=== PATIENT | male | born 1950 | race Caucasian/White ===

== ENCOUNTER 2019-03-17 17:15 | Inpatient (IN) | payer OTHER ==
[~2019-03-17] VITALS: Ht 172.7 cm; Wt 93.6 kg
[~2019-03-17 17:15] MED LIST: ASPIRIN81 M1 PO; HIGH BP MED
[2019-03-17 17:19] VITALS: BP 150/77
[2019-03-17 17:56] LABS: BILIRUBIN NEGATIVE (NEGATIVE); BLOOD 3+ (NEGATIVE); CLARITY CLOUDY (CLEAR); COLOR YELLOW (YELLOW); GLUCOSE 1+ (NEGATIVE); KETONE NEGATIVE (NEGATIVE); LEUKO ESTERASE NEGATIVE (NEGATIVE); NITRITE POSITIVE (NEGATIVE); PH 5.5 (5.0-9.0); SPECIFIC GRAVITY >= 1.030 (1.005-1.030)
[2019-03-17 18:12] LABS: WBC 31-40 wbc/hpf (0-5)
[2019-03-17 18:13] LABS: BACTERIA 2+
[2019-03-17 18:13] LABS: HEMATOCRIT 46.5 % (42.0-52.0); HEMOGLOBIN 16.3 g/dl (14.0-18.0); MEAN CELL VOLUME 92.1 fl (80.0-94.0); MEAN CORPUSCULAR HGB 32.3 pg (27.0-31.0); MEAN CORPUSCULAR HGB CONC 35.1 g/dl (33.0-37.0); MEAN PLATELET VOLUME 11.5 fl (9.6-12.3); PLATELET COUNT AUTOMATED 163 10*3/uL (130-400); RED BLOOD COUNT 5.05 10*6/uL (4.50-5.90); RED CELL DISTRI WIDTH 12.9 % (0-14.5); WHITE BLOOD COUNT 19.1 10*3/uL (4.8-10.8)
[2019-03-17 18:29] LABS: ALBUMIN 3.2 gm/dl (3.1-4.5); ALKALINE PHOSPHATASE 69 U/L (45-117); BUN 28 mg/dl (7-24); CHLORIDE 100 mmol/L (98-107); CREATININE 1.29 mg/dL (0.70-1.30); POTASSIUM 3.4 mmol/L (3.5-5.1); SGOT/AST 17 IU/L (3-35); SGPT/ALT 23 U/L (12-78); SODIUM 134 mmol/L (136-145); TOTAL PROTEIN 7.6 gm/dL (6.4-8.2)
[2019-03-17 18:32] LABS: TOTAL CELLS COUNTED 100 #CELLS
[2019-03-17 18:33] LABS: PLATELET SUFFICIENCY NORMAL (NORMAL)
[2019-03-17 20:15] VITALS: BP 144/83
--- NOTE | 2019-03-17 20:15 | NUR ---
The assessment has been completed. ANN NEWSOMEime: 2014 A 68 year old MALKE admitted to under services of HERB SANTAMARIA DO. Pt. arrived via ambulatory from ER. Chief complaint: FEVER,CHILLS,DYSURIA,BODY ACHES, HEADACHE SINCE Monday03/13/19. MAYURI NEWSOME
[2019-03-17] MEDS ORDERED: VITAMIN D250 MCG PO (20:45)
[2019-03-17] MEDS ORDERED: NAPROXEN SODIU500 M1 PO (20:46)
[2019-03-17] MEDS ORDERED: TENORMIN50 MG PO (20:46)
[2019-03-17] MEDS ORDERED: FISH OIL + D31 EACH PO (20:47)
[2019-03-17] MEDS ORDERED: LISINOPRIL40 MG PO (20:48)
[2019-03-17] MEDS ORDERED: GLUCOTROL XL10 MG PO (20:48)
[2019-03-17] MEDS ORDERED: AMLODIPINE BESYL5 MG PO (20:49)
[2019-03-17] MEDS ORDERED: ALOGLIPTIN25 MG PO (20:49)
--- NOTE | 2019-03-17 20:51 | NUR ---
NOTIFIED DR MCGUIRE OF PTS ARRIVAL TO FLOOR. MED REC UP TO DATE. ALSO INFORMED HIM THAT PT WAS IN BIGEMENY WITH NO SYMPTOMS. STATED HE WOULD PUT ORDERS IN .
--- NOTE | 2019-03-17 21:11 | NUR ---
SPOKE WITH DR MCGUIRE. ORDERS RECIEVED AND REPEATED BACK.
--- NOTE | 2019-03-17 22:31 | NUR ---
PT REQUESTING SOMETHING TO HELP HIM SLEEP TONIGHT. MEDICATED PER ORDER. WILL MONITOR FOR EFFECTIVENESS. VOICES NO OTHER CONCERNS AT THIS TIME. RESTING IN BED. CALL LIGHT WITHIN REACH. RESPS EASY AND NON LABORED.
[2019-03-18] VITALS: BP 131/60
--- NOTE | 2019-03-18 00:49 | NUR ---
24 HR chart check completed.
--- NOTE | 2019-03-18 03:04 | NUR ---
Patient sleeping. Respirations relaxed and easy. Siderails up . [place] on. No signs or symptoms of distress noted. Call light within reach. HISSOM,MAYURI
[2019-03-18 07:21] VITALS: BP 140/80
--- NOTE | 2019-03-18 07:46 | NUR ---
PT IS LAYING IN BED ORDERING BREAKFAST, ASSESSMENT COMPLETED, NO COMPLAINTS AT THIS TIME. DIMA GUILLENU.RCC
--- NOTE | 2019-03-18 07:55 | NUR ---
PT COMPLAINED OF HEADACHE, ACETAMINOPHEN GIVEN, PT TOLERATED WELL, LAYING IN BED WATCHING TELEVISION. DIMA LBAS TREV.RCC
--- NOTE | 2019-03-18 10:04 | NUR ---
PT COOPERATIVE, SITTING IN BED WATCHING TELEVISION, NO COMPLAINTS AT THIS TIME. DIMA BLAS TREV.RCC
--- NOTE | 2019-03-18 10:21 | NUR ---
ANIMAL TREATMENT INVESTIGATOR DC'D ORDERED PER
[2019-03-18 12:32] VITALS: BP 140/80
--- NOTE | 2019-03-18 12:40 | NUR ---
PT LAYING IN BED PEACEFULLY, VISITING WITH FAMILY, ORDERING LUNCH, NO COMPLAINTS AT THIS TIME. DIMA KARIMI.RCC
--- NOTE | 2019-03-18 13:30 | NUR ---
PT SITTING IN BED COMFORTABLY, VISITNG WITH FAMILY, ASSESSMENT COMPLETED, NO COMPLAINTS AT THIS TIME. DIMA GUILLENU.[facility]
--- NOTE | 2019-03-18 13:41 | NUR ---
REPORT GIVEN TO BOBBY KARIMI.RCC
--- NOTE | 2019-03-18 14:13 | NUR ---
DR REY MADE AWARE OF POSITIVE BLOOD CULTURES OF GNB.
--- NOTE | 2019-03-18 14:31 | NUR ---
Sport Intern in to talk to patient. Patient states lives at HOME with DAUGHTER. There are FEW steps in the home. Physician: AMAURI [facility]: [facility] Home health services: NONE Patient's level of ADLs: INDEPENDENT Patient has working utilities: YES DME: NONE Follow-up physician's appointment after d/c: WILL BE MADE BY HOSPITALIST NURSE DIRECTOR ON DISCHARGE Does patient want to access PORTAL?: NO Discharge plan PT LIVES WITH DAUGHTER AND IS INDEPENDENT IN HIS CARE. DENIES HE WILL HAVE NEEDS ON DISCHARGE. WILL CONTINUE TO FOLLOW. STATES HE [facility] HOME. BAKARI DUARTE
--- NOTE | 2019-03-18 15:51 | NUR ---
MEDICATED WITH TYLENOL PER PRN ORDER FOR TEMP OF 100.2. WILL MONITOR.
[2019-03-18 16:00] VITALS: BP 150/66
--- NOTE | 2019-03-18 17:33 | NUR ---
RECHECKED PT'S TEMP. 99.6
--- NOTE | 2019-03-18 19:30 | NUR ---
PT RESTING IN BED. VOICES NO CONCERNS/COMPLAINTS AT THIS TIME. NO S/S OF DISTRESS NOTED. CALL LIGHT WITHIN REACH.
[2019-03-18 20:00] VITALS: BP 146/60
--- NOTE | 2019-03-18 21:06 | NUR ---
PT REQUESTING SOMETHING TO HELP HIM SLEEP. MEDICATED PER ORDER. VOICES NO OTHER CONCERNS AT THIS TIME. RESTING IN BED. CALL LIGHT WITHIN REACH.
--- NOTE | 2019-03-18 21:47 | NUR ---
BLOOD SUGAR 112
[2019-03-19] VITALS: BP 153/67
--- NOTE | 2019-03-19 01:31 | NUR ---
Patient resting quietly with no c/o or s/s of discomfort. Respirations easy and regular. Vital signs stable. No overt distress. Call light within reach. HISSOM,MAYURI
--- NOTE | 2019-03-19 02:54 | NUR ---
24 HR chart check completed.
--- NOTE | 2019-03-19 04:18 | NUR ---
Patient sleeping. Respirations relaxed and easy. Siderails up . [place] on. Call light within reach. No s/s of distress noted HISSOM,MAYURI
[2019-03-19 07:04] LABS: HEMOGLOBIN 14.4 g/dl (14.0-18.0); MEAN CELL VOLUME 93.3 fl (80.0-94.0); MEAN CORPUSCULAR HGB CONC 34.3 g/dl (33.0-37.0); MEAN PLATELET VOLUME 11.7 fl (9.6-12.3); PLATELET COUNT AUTOMATED 160 10*3/uL (130-400); RED CELL DISTRI WIDTH 13.2 % (0-14.5); WHITE BLOOD COUNT 12.6 10*3/uL (4.8-10.8)
[2019-03-19 07:35] LABS: ALBUMIN 2.6 gm/dl (3.1-4.5); ALKALINE PHOSPHATASE 61 U/L (45-117); BUN 20 mg/dl (7-24); CHLORIDE 104 mmol/L (98-107); CREATININE 0.97 mg/dL (0.70-1.30); POTASSIUM 3.6 mmol/L (3.5-5.1); SGOT/AST 25 IU/L (3-35); SGPT/ALT 28 U/L (12-78); SODIUM 138 mmol/L (136-145); TOTAL PROTEIN 6.8 gm/dL (6.4-8.2)
[2019-03-19 07:41] LABS: PLASMA CELL 2 % (0-0); PLATELET SUFFICIENCY NORMAL (NORMAL); TOTAL CELLS COUNTED 100 #CELLS
[2019-03-19 08:00] VITALS: BP 139/56
--- NOTE | 2019-03-19 10:39 | NUR ---
REPORT GIVEN TO JEAN SR
--- NOTE | 2019-03-19 12:00 | NUR ---
TOOK OVER CARE OF PT. PT SITTING UP IN BED, ALERT ORIENTED AND PLEASANT MOOD WITH NO COMPLAINTS VOICED. RESPIRATIONS EASY AND UNLABORED. CALL LIGHT IN REACH.
[2019-03-19 16:00] VITALS: BP 149/71
--- NOTE | 2019-03-19 17:24 | NUR ---
TYLENOL GIVEN AT THIS TIME FOR HEADACHE. WILL MONITOR.
--- NOTE | 2019-03-19 18:24 | NUR ---
TYLENOL EFFECTIVE PER PT.
--- NOTE | 2019-03-19 19:30 | NUR ---
REPORT RECEIVED FROM JEAN SR. PT AWAKE, FAMILY AT BEDSIDE. PT VOICES NO COMPLAINTS AT THIS TIME. CALL LIGHT IN REACH.
[2019-03-19 20:00] VITALS: BP 150/74
--- NOTE | 2019-03-19 22:30 | NUR ---
PT LYING IN BED WATCHING TV AT THIS TIME, IV FLUIODS INFUSING WITHOUT DIFFICULTY. CALL LIGHT IN REACH.
[2019-03-20] VITALS: BP 148/63
[2019-03-20 06:28] LABS: HEMATOCRIT 44.5 % (42.0-52.0); HEMOGLOBIN 15.2 g/dl (14.0-18.0); MEAN CELL VOLUME 94.5 fl (80.0-94.0); MEAN CORPUSCULAR HGB 32.3 pg (27.0-31.0); MEAN CORPUSCULAR HGB CONC 34.2 g/dl (33.0-37.0); MEAN PLATELET VOLUME 11.4 fl (9.6-12.3); PLATELET COUNT AUTOMATED 195 10*3/uL (130-400); RED BLOOD COUNT 4.71 10*6/uL (4.50-5.90); RED CELL DISTRI WIDTH 13.2 % (0-14.5); WHITE BLOOD COUNT 10.9 10*3/uL (4.8-10.8)
[2019-03-20 07:00] LABS: ATYPICAL LYMPHS 5 % (0-0); PLASMA CELL 4 % (0-0); PLATELET SUFFICIENCY NORMAL (NORMAL); TOTAL CELLS COUNTED 100 #CELLS
--- NOTE | 2019-03-20 07:15 | NUR ---
INFORMED THAT BC FOR 03/17 ARE POSITIVE FOR E.COLI, LAB IS PUTTING SENSITIVITY IN NOW. DR STATED OK.
--- NOTE | 2019-03-20 07:46 | NUR ---
VITAL SIGNS STABLE. A&0 X3. ALICJA. POSITIVE PEDAL PULSES. SKIN TURGOR NON-TENTED. SKIN PINK, WARM, DRY, INTACT. HEART SOUNDS NORMAL. CAPILLARY REFILL < 3 SECONDS. LUNGS CLEAR THROUGHOUT. ABD SOFT, NON-TENDER, NON-DISTENDED. BS ACTIVE X4. PLEASANT AND COOPERATIVE. PRASANNA LEARY.
[2019-03-20 08:00] VITALS: BP 128/88
--- NOTE | 2019-03-20 08:14 | NUR ---
VITAL SIGNS STABLE. ALICJA. A&O X3. SKIN PINK, WARM, DRY, INTACT. NO PAIN AT THIS TIME. POSITIVE PEDAL PULSES. SKNI TURGOR NON-TENTED. PO2 97% R/A. CAPILLARY REFILL < 3 SECONDS. HEART SOUNDS NORMAL. LUNGS CLEAR THROUGHOUT. ABD SOFT, NON-TENDER, NON-DISTENDED. BS ACTIVE X4. IV SITE IN THE RIGHT ANTECUNITAL IS INTACT, NO SIGN OR SYMPTOM OF INFECTION. PRASANNA LEARY.
[2019-03-20] MEDS ORDERED: CIPRO500 MG PO (11:47)
[2019-03-20 12:00] VITALS: BP 148/88
--- NOTE | 2019-03-20 12:38 | NUR ---
Discharge instructions reviewed with patient/family. Patient receptive and verbalizes understanding. Follow-up care arranged. Written instructions given to patient/family. HEP LOCK REMOVED. DISCHARGED VIA W/C. CONDITION STABLE. JORDEN LEOS
--- NOTE | 2019-03-20 13:19 | NUR ---
MET WITH PT AND HE STILL DENIES HE WILL HAVE ANY NEEDS ON DISCHARGE. WILL CONTINUE TO FOLLOW.
== END 2019-03-20 12:38 | disposition home or self-care (01) | DRG 872 ==
LOC: ED 17:15 → 4E 19:22 → EDHOLD 19:22 → 4E 20:14 → 5E 03-19 11:02
PROVIDERS: Hospitalist; Internal Medicine; Physician Assistant; ADMIT Internal Medicine
DX: A41.9 Sepsis, unspecified organism (principal); E87.1 Hypo-osmolality and hyponatremia; N30.01 Acute cystitis with hematuria; E87.6 Hypokalemia; E86.0 Dehydration; I10 Essential (primary) hypertension; E11.65 Type 2 diabetes mellitus with hyperglycemia; Z87.440 Personal history of urinary (tract) infections; Z82.3 Family history of stroke; Z79.899 Other long term (current) drug therapy; Z79.82 Long term (current) use of aspirin

== ENCOUNTER 2021-01-01 14:16 | Emergency (ER) | payer MEDICARE ==
[~2021-01-01] VITALS: Ht 172.7 cm; Wt 90.7 kg
[~2021-01-01 14:16] MED LIST changes: +ALOGLIPTIN25 MG PO; +AMLODIPINE BESYL5 MG PO; +CIPRO500 MG PO; +FISH OIL + D31 EACH PO; +GLUCOTROL XL10 MG PO; +LISINOPRIL40 MG PO; +NAPROXEN SODIU500 M1 PO; +TENORMIN50 MG PO; +VITAMIN D250 MCG PO
[2021-01-01 16:03] LABS: BASO # 0.1 10*3/uL (0.0-0.1); BASO % 0.8 % (0.0-1.0); EOS # 0.3 10*3/uL (0.0-0.4); EOS % 2.7 % (1.0-4.0); HEMATOCRIT 47.9 % (42.0-52.0); LYMPH # 2.9 10*3/uL (1.3-4.4); LYMPH % 26.2 % (27.0-41.0); MEAN CELL VOLUME 94.5 fl (80.0-94.0); MEAN CORPUSCULAR HGB 32.5 pg (27.0-31.0); MEAN CORPUSCULAR HGB CONC 34.4 g/dl (33.0-37.0); MONO % 8.7 % (3.0-9.0); NEUT # 6.8 10*3/uL (2.3-7.9); NEUT % 61.2 % (47.0-73.0); PLATELET COUNT AUTOMATED 213 10*3/uL (130-400); RED BLOOD COUNT 5.07 10*6/uL (4.50-5.90); RED CELL DISTRI WIDTH 13.2 % (0-14.5); WHITE BLOOD COUNT 11.1 10*3/uL (4.8-10.8)
[2021-01-01 16:19] LABS: ALBUMIN 3.8 gm/dl (3.1-4.5); ALKALINE PHOSPHATASE 48 U/L (45-117); BUN 26 mg/dl (7-24); CHLORIDE 104 mmol/L (98-107); CREATININE 1.24 mg/dL (0.70-1.30); POTASSIUM 3.8 mmol/L (3.5-5.1); SGOT/AST 26 IU/L (3-35); SGPT/ALT 48 U/L (12-78); SODIUM 139 mmol/L (136-145); TOTAL PROTEIN 7.3 gm/dL (6.4-8.2)
[2021-01-01] MEDS ORDERED: MECLIZINE HCL25 M2 PO (17:50)
== END 2021-01-01 17:58 | disposition home or self-care (01) ==
LOC: ED 14:16
PROVIDERS: Family Medicine
DX: R42 Dizziness and giddiness (principal); Z79.899 Other long term (current) drug therapy